=== PATIENT | female | born 2000 | race Caucasian/White ===

== ENCOUNTER 2024-06-27 09:45 | Inpatient (IN) | payer OTHER ==
[2024-06-27] MEDS ORDERED: PENICILLIN G POTASSIUM 5,000,000 UNIT/250 ML BAG IVPB ONE (11:56)
[2024-06-27] MEDS: PENICILLIN G POTASSIUM 5,000,000 PRE-DOCK IN NS 250 ML IVPB ONE (12:07)
[2024-06-27] MEDS: LACTATED RINGERS SOLUTION 1,000 ML IV ONE (12:08)
[2024-06-27] MEDS ORDERED: PENICILLIN G POTASSIUM 5,000,000 UNIT in SODIUM CHLORIDE 250 ML IVPB ONE (12:30)
[2024-06-27 12:34] LABS: BASO % 0.2 % (0-2.0); EOS % 0.2 % (0-4.5); HEMATOCRIT 35.2 % (32.4-45.2); HEMOGLOBIN 11.5 GM/dL (10.7-15.3); LYMPH % 16.5 % (8-40); MCH 25.7 pg (25.7-33.7); MCHC 32.8 g/dl (32.0-36.0); MEAN CELL VOLUME 78.5 fl (80-96); MEAN PLT VOLUME 9.4 fl (7.5-11.1); MONO % 4.9 % (3.8-10.2); NEUT % 78.2 % (42.8-82.8); PLATELET COUNT 180 10^3/uL (134-434); RBC 4.48 M/mm3 (3.60-5.2); RDW 15.2 % (11.6-15.6); WHITE BLOOD COUNT 14.4 K/mm3 (4.0-10.0)
[2024-06-27 12:41] LABS: INR 0.96 (0.83-1.09); PROTHROMBIN TIME (PATIENT) 10.9 SEC (9.7-13.0)
[2024-06-27 12:43] LABS: ACTIVATED PTT 28.4 SECONDS (25.2-36.5)
[2024-06-27 12:48] VITALS: BMI 37.1
[2024-06-27] MEDS ORDERED: FENTANYL/BUPIVACAINE/NS/PF - PCEA - 50 ML DISP.SYRIN EP ONE ×3 (13:00→19:53)
[2024-06-27 13:03] LABS: POTASSIUM 3.9 mmol/L (3.5-5.1)
[2024-06-27 13:04] LABS: BLOOD UREA NITROGEN 8.8 mg/dL (7-18); CALCIUM 9.6 mg/dL (8.5-10.1)
[2024-06-27 13:08] LABS: CREATININE 0.7 mg/dL (0.55-1.3)
[2024-06-27] MEDS ORDERED: FENTANYL CITRATE/PF 50 MCG/ML VIAL ONE (13:18)
[2024-06-27] MEDS: FENTANYL/BUPIVACAINE/NS/PF - PCEA - 50 ML DISP.SYRIN EP SCH (13:35)
[2024-06-27] MEDS ORDERED: NALOXONE HCL 0.4 MG/ML VIAL IVPUSH PRN (13:38)
[2024-06-27] MEDS: PENICILLIN G POTASSIUM 2,500,000 UNIT in DEXTROSE 5%-WATER - 100 ML IVPB SCH (16:39)
[2024-06-27] MEDS ORDERED: LIDOCAINE HCL 1% PRESERVATIVE FREE - 30ML VIAL ONE (20:02)
[2024-06-27] MEDS ORDERED: OXYTOCIN 20 UNITS in 0.9% NS 20 UNIT/1,000 ML INFUS.BAG IV ONE (20:02)
[2024-06-27] MEDS: OXYTOCIN 20 UNITS in 0.9% NS 20 UNIT/1,000 ML INFUS.BAG IV SCH (21:28)
[2024-06-27] MEDS ORDERED: MISOPROSTOL 200 MCG TABLET ONE (21:28)
[2024-06-27] MEDS: MISOPROSTOL 200 MCG TABLET PV ONE (21:29)
[2024-06-27] MEDS: METHYLERGONOVINE MALEATE 0.2 MG/1 ML AMP IM ONE (21:33)
[2024-06-27] MEDS ORDERED: BISACODYL 10 MG SUPP.RECT RC PRN (22:06)
[2024-06-27] MEDS ORDERED: ACETAMINOPHEN 325 MG TABLET (FP) PO PRN (22:06)
[2024-06-27] MEDS ORDERED: METHYLERGONOVINE MALEATE 0.2 MG/1 ML AMP IM PRN (22:06)
[2024-06-27] MEDS: MISOPROSTOL 200 MCG TABLET NR ONE (23:01)
[2024-06-27] MEDS: LACTATED RINGERS SOLUTION 1,000 ML IV SCH (23:01)
[2024-06-28] MEDS: IBUPROFEN 600 MG TABLET (FP) PO PRN (00:18)
[2024-06-28] MEDS: BENZOCAINE 20% 57 GM BOTTLE TP PRN (00:21)
[2024-06-28] MEDS: SENNOSIDES/DOCUSATE COMBO (SENNA PLUS) TABLET (UD) PO PRN (00:22)
[2024-06-28 05:32] VITALS: RESP 18
[2024-06-28 07:39] LABS: BASO % 0.1 % (0-2.0); EOS % 0.2 % (0-4.5); HEMATOCRIT 30.8 % (32.4-45.2); HEMOGLOBIN 9.9 GM/dL (10.7-15.3); LYMPH % 14.8 % (8-40); MCH 25.5 pg (25.7-33.7); MCHC 32.3 g/dl (32.0-36.0); MEAN CELL VOLUME 79.1 fl (80-96); MEAN PLT VOLUME 9.5 fl (7.5-11.1); MONO % 8.2 % (3.8-10.2); NEUT % 76.7 % (42.8-82.8); PLATELET COUNT 154 10^3/uL (134-434); RDW 14.9 % (11.6-15.6); WHITE BLOOD COUNT 16.1 K/mm3 (4.0-10.0)
[2024-06-28] MEDS: FERROUS SO4 325 MG TABLET (FP) PO ONE (10:21)
[2024-06-28] MEDS: WITCH HAZEL 50% (TUCKS) 40 PAD/JAR PAD TP PRN (22:44)
[2024-06-28] MEDS: BENZOCAINE 28 GM HEMORRHOIDAL OINTMENT TP PRN (22:44)
[2024-06-29 08:53] VITALS: BP 104/66; PULSE 93; TEMP 98
== END 2024-06-29 17:50 | disposition home or self-care (01) | DRG 560 ==
LOC: JDEL 09:45 → JLDR 11:30 → J3W 06-28 00:23
PROVIDERS: ADMIT Obstetrics & Gynecology Obstetrics; ATTEND Obstetrics & Gynecology Obstetrics
PROC: 0W8NXZZ Division of Female Perineum, External Approach (ICD-10-PCS; principal; 2024-06-27)
PROC: 0KQM0ZZ Repair Perineum Muscle, Open Approach (ICD-10-PCS; 2024-06-27)
DX: O99.824 Streptococcus B carrier state complicating childbirth (principal); O70.1 Second degree perineal laceration during delivery; Z3A.40 40 weeks gestation of pregnancy; Z37.0 Single live birth
CPT/HCPCS: 36415; 59025; 59409; 80048; 85025; 85610; 85730; 86780; 86803; 86850; 86900; 86901

== ENCOUNTER 2025-05-08 17:53 | Emergency (ER) | payer OTHER ==
[2025-05-08 18:05] VITALS: BP 106/46; PULSE 69; RESP 16; TEMP 98.3; BMI 29.8
[2025-05-08 19:51] LABS: URINE APPEARANCE CLEAR; URINE BILIRUBIN NEGATIVE (NEGATIVE); URINE COLOR YELLOW; URINE GLUCOSE (UA) NEGATIVE (NEGATIVE); URINE KETONE NEGATIVE (NEGATIVE); URINE LEUK ESTERASE NEGATIVE (NEGATIVE); URINE NITRITE NEGATIVE (NEGATIVE); URINE PROTEIN NEGATIVE (NEGATIVE); URINE UROBILINOGEN 0.2 mg/dL (0.2-1.0)
== END 2025-05-08 20:32 | disposition home or self-care (01) ==
LOC: JER 17:53
DX: O20.9 Hemorrhage in early pregnancy, unspecified (principal); Z3A.10 10 weeks gestation of pregnancy
CPT/HCPCS: 36415; 76815; 81003; 84703; 87070; 87077; 87086; 87205; 87491; 87591; 99284-25